=== PATIENT | female | born 1990 | race Caucasian/White ===

== ENCOUNTER 2019-11-23 09:07 | Emergency (ER) | payer OTHER, SELFPAY ==
[2019-11-23 09:08] VITALS: BP 152/95; PULSE 85; RESP 18; TEMP 37; O2SAT 98; BMI 48.4
--- NOTE | 2019-11-23 09:27 | ED.DCSUM_ITS ---
History of Present Illness Chief Complaint: Allergic Reaction Informant: Patient Onset: Today Narrative: Patient states she woke with indigestion and took Pepto-Bismol around 7 AM. About 15 minutes later she started breaking out in hives. She complains of itching and rash on her arms, lumbar trunk, and back. She has not taken anything for the symptoms at this time. She states she felt like her lips were swollen. She had no difficulty breathing or swallowing. She reports taking Pepto-Bismol in the past without any difficulty. She did not take anything different this morning. Past Medical History - Allergies and Home Meds Allergies/Adverse Reactions: Allergies bismuth subsalicylate [From Pepto-Bismol] Allergy (Verified 11/23/19 09:24) Rash Primary Care Physician: Rashid Dukes MD [Primary Care Provider] - Past Medical History: None Smoking Status: Never smoker Review of Systems General: Denies: Chills, Fever Eyes: Denies: Visual changes - bilaterally ENT: Denies: Bilateral ear pain Cardiovascular: Denies: Chest pain Respiratory: Denies: Dyspnea Gastrointestinal: Denies: Nausea, Vomiting, Diarrhea Musculoskeletal: Reports: Swelling. Denies: Extremity Pain Skin: Reports: Rash Neurological: Denies: Headache Allergy: Reports: Uticaria Physical Exam Vital Signs/Narrative: Vital Signs Temp Pulse Resp BP Pulse Ox 11/23/19 09:08 98.6 F 85 18 152/95 H 98 Inital Vital Signs reviewed: Yes General: Well nourished, Well developed Head: Normocephalic ENT: Moist mucous membranes, - - No tongue edema noted. Posterior pharynx examination is normal. Patient speaks with a strong voice and is tolerating secretions well. Neck: Supple Cardiovascular: Regular rate, Regular rhythm Respiratory: No distress, CTA bilaterally Abdomen: Soft, Nontender Skin: - - Patient presents with erythema, mild swelling, hives on her bilateral forearms, upper chest and back. Neurological: Alert, Oriented x3 Psychological: Normal affect Diagnostic/Tx/Re-eval - Medical Decision Making Patient was given Solu-Medrol, Benadryl, and Pepcid. She was observed for 2 hours after medications were given. Erythema has significantly improved. She will be discharged with a prescription for prednisone. ED Disposition - Plan for ED Patient: Disposition: Home or Assisted Living Diagnosis: Allergic reaction Instructions: ALLERGIC REACTION, Other (General) Prescriptions: Prednisone [Deltasone] 60 mg PO DAILY #15 tab Transmission Status: Pending to [id number] Referrals: Rashid Dukes MD [Primary Care Provider] - As Needed
[2019-11-23] MEDS: MethylPREDNISolone 125 MG/2 ML Vial IV (09:33)
[2019-11-23] MEDS: DiphenhydrAMINE 50 MG/ML Syringe 25 MG IV (09:33)
[2019-11-23] MEDS: Famotidine 200 MG/20 ML MDV 20 MG in 0.9% Normal Saline (Pres. free 8 ML 300 MG IV (09:47)
[2019-11-23 11:50] VITALS: PULSE 90; RESP 16; O2SAT 97
[2019-11-23 12:14] VITALS: PULSE 90; RESP 16; O2SAT 97
== END 2019-11-23 12:15 | disposition home or self-care (01) ==
PROVIDERS: Emergency Provider Emergency Medicine; Family Provider Family Medicine; PCP Family Medicine
DX: L50.0 Allergic urticaria (principal); T47.6X5A Adverse effect of antidiarrheal drugs, initial encounter
CPT/HCPCS: 96374; 96375; 99284; A4216; J3490

== ENCOUNTER 2023-12-11 15:16 | Emergency (ER) | payer SELFPAY ==
[2023-12-11 15:18] VITALS: BP 147/77; PULSE 71; RESP 22; TEMP 35.9; O2SAT 98; BMI 40.4
--- NOTE | 2023-12-11 15:43 | EX.ED.VIS.PS ---
HPI HPI - Psych History of Present Illness Chief Complaint: Suicidal Narrative Narrative: 33-year-old female who denies significant past medical history except for depression, not on medication, presents with thoughts and threats of suicide. She states that she used to work at [employer] and was fired today. She had a breakdown as she calls it, and told her operations manager station that she wanted to hurt herself. She states that she currently lives with roommates and that she lost her job, does not want to face debt. She does not want to be homeless. While she states she is never been sent to a psychiatric facility and never attempted suicide, she has remote behavior of cutting herself with a razor blade when she was younger, and she would hit her head against the wall with attempts to hurt herself. She states her operations manager station called the police, and the police brought her to the emergency department for evaluation. PFSH PFSH Home Medications prednisone 20 mg tablet 60 mg (3 x 20 mg) PO DAILY #15 tabs 11/23/19 [Rx Last Taken Unknown] Allergy/AdvReac Type Severity Reaction Status Date / Time bismuth subsalicylate Allergy Rash Verified 11/23/19 09:24 [From Pepto-Bismol] Social History Smoking Status: Never smoker ROS ROS ED ROS Narrative Constitutional: No fever, no chills. HEENT: No sore throat. No neck pain. No loss of vision. No rhinorrhea. Cardiovascular: No chest pain. No palpitations. No pedal edema. Respiratory: No cough, no shortness of breath. Abdominal: No abdominal pain. No nausea. No vomiting. Genitourinary: No dysuria. No hematuria. Musculoskeletal: No myalgias. No arthralgias. Neurologic: No headaches. No dizziness. No lightheadedness. Skin: No rash. No change in color. Psychiatric: Positive suicidal ideation with threats of hurting herself. Positive depression. EXAM Physical Exam Narrative Exam Narrative: Afebrile. Vital signs noted. HEENT: Normocephalic. Atraumatic. PERRL, EOMI. Neck soft and supple. No point tenderness or step off. Cardiovascular: Regular rate and rhythm. No murmurs, rubs, or gallops appreciated. Respiratory: No tachypnea. Lungs clear to auscultation bilaterally. Gastrointestinal: Abdomen soft, nontender, with normoactive bowel sounds. No rebound or guarding. Neurological: Awake. Alert. Nonfocal, nonlateralizing. Skin: No rash. Normal color. No pallor. Musculoskeletal: No pedal edema. Full range of motion extremities. Psychiatric: Tearful on examination. Depressed affect. Const Vital Signs: 12/11/23 15:18 Temperature 96.7 F L Temperature Source Temporal Pulse Rate 71 Respiratory Rate 22 H Blood Pressure 147/77 H Blood Pressure Mean 100 Pulse Ox 98 Oxygen Delivery Method Room Air MDM MDM MDM Narrative Medical decision making narrative: Concern is for actual suicidal ideation, she does not currently take medications for depression. It may be situational as she was recently let go from her job. Medical clearance labs will be obtained and reviewed. I reviewed her laboratory work, and she has normal white count of 6.7, ALT of 12, AST of 12 also. Potassium slightly low at 3.3 which was replaced orally with 40 mill equivalents. Glucose is appropriately elevated at 70. This will be rechecked prior to any disposition. She will be able to eat something by mouth. I reviewed her ethanol level which is negative and urine for drugs of abuse is positive for cannabinoids and cocaine. However, I do feel that she is medically cleared for crisis evaluation. In discussion with the crisis counselor, it was not thought that she required a psychiatric facility. She is able to contract for safety without ambivalence. She never really had a plan for suicide and her idea of self-harm is hitting her head against the wall. She will follow-up with the counseling center in the next few days as well. She will return with thoughts of self-harm or suicide that are increasing, new or worsening symptoms. Disposition is discharged in stable condition. History & Record Review Discussion w/independent historian: Patient Additional record(s) reviewed:: Prior ED visit Lab Data Attestation: I reviewed the patient's lab results. Labs: Laboratory Results - last 24 hr 12/11/23 12/11/23 15:38 15:53 WBC 6.7 RBC 4.30 Hgb 13.2 Hct 39.6 MCV 92.1 MCH 30.7 MCHC 33.3 RDW Std Deviation 44.1 H RDW Coeff of Erika 13.1 Plt Count 243 MPV 9.5 Immature Gran % (Auto) 0.300 Neut % (Auto) 62.2 Lymph % (Auto) 27.3 [place] % (Auto) 5.6 Eos % (Auto) 4.2 Baso % (Auto) 0.4 Absolute Neuts (auto) 4.2 Absolute Lymphs (auto) 1.84 Nucleated RBC % 0 Sodium 138 Potassium 3.3 L Chloride 104 Carbon Dioxide 30.0 Anion Gap 4 L BUN 16 Creatinine 0.70 Estim Creat Clear Calc 148.82 Est GFR (MDRD) Af Amer 125 Est GFR (MDRD) Non-Af 103 BUN/Creatinine Ratio 22.8 H Glucose 70 L Calcium 8.5 Total Bilirubin 0.20 AST 12 L ALT 12 L Alkaline Phosphatase 73 Total Protein 7.3 Albumin 3.0 L Globulin 4.3 H Albumin/Globulin Ratio 0.7 L Serum , Qual NEGATIVE Urine Opiates Screen NEGATIVE Urine Methadone Screen NEGATIVE Ur Barbiturates Screen NEGATIVE Ur Phencyclidine Scrn NEGATIVE Ur Amphetamines Screen NEGATIVE MDMA (Ecstasy) Screen NEGATIVE U Benzodiazepines Scrn NEGATIVE Urine Cocaine Screen POSITIVE H U Cannabinoids Screen POSITIVE H Ur Drug Screen Comment Ethyl Alcohol < 3.0 Discharge Plan Triage Chief Complaint: Suicidal ED Provider: Isiah Toledo Dx/Rx/DC Orders Clinical Impression: Thoughts of self-harm, Stress reaction, Depression Instructions: Your Mental Health Safety Plan, ED Anxiety Reaction, ED Depression Prescriptions: No Action prednisone 20 MG tablet 60 mg PO DAILY Qty: 15 0RF Rx Instructions: With food Primary Care Provider: Rashid Dukes Referrals: Counseling,Center [Group of Physicians] - 2 Days Rashid Dukes MD [Primary Care Provider] - 1-2 Days if not improving Activity Restrictions/Additional Instructions: Return with increasing thoughts of hurting yourself, suicide, new or worsening symptoms. Disposition Disposition: Home, Self Care
[2023-12-11 16:02] LABS: Absolute Lymphocyte Count 1.84 X10^3/uL (0.83-4.51); Absolute Neutrophil Count 4.2 X10^3/uL (2.0-7.7); Basophil# 0.03 X10^3/uL; Basophil% 0.4 % (0-1); Eosinophil# 0.28 X10^3/uL; Eosinophils% 4.2 % (0-5); Hematocrit 39.6 % (37-47); Hemoglobin 13.2 g/dL (12.0-15.0); Lymphocyte # 1.84 X10^3/ul (0.83-4.51); Lymphocyte % 27.3 % (19-41); Mean Corp Hgb Conc 33.3 g/dL (32-36); Mean Corpuscular Hgb 30.7 pg (27.0-32.0); Mean Corpuscular Volume 92.1 fL (81-99); Mean Platelet Vol. 9.5 fl (6.2-12.0); Monocyte# 0.38 X10^3/uL; Monocyte% 5.6 % (0-10); NRBC Flagged by Analyzer 0 % (0-5); Neutrophil # 4.19 X10^3/uL (2.7-7.7); Neutrophil % 62.2 % (47-70); Platelet Count 243 K/mm3 (150-450); RBC Distribution Width CV 13.1 % (11.6-14.6); RBC Distribution Width SD 44.1 fl (35.1-43.9); White Blood Count 6.7 K/mm3 (4.4-11.0)
--- OUTSIDE RECORDS SUMMARY | 2023-12-11 16:13 | XMS RPT_ITS | CCD ---
Author Name Unknown Address [address] [place] [address] Organization [facility] Results Test Name Value Interpretation Reference Range Facil ity Summary Purpose Family History No Family History Records Found Advance Directives No Advanced Directives Records Found Additional Source Comments INFORMATION SOURCE (unrecogn ized section and content) FOR RECORDS PERTAINING TO PATIENTS WHO ARE OR HAVE BEEN ENROLLED IN A CHEMICAL DEPENDENCY/SUBSTANCEABUSE PROGRAM, SOME INFORMATION MAY BE OMITTED. This clinical summary was aggregated from multiple sources. Caution should be exercised in using it in the provision of clinical care. This summary normalizes information from multiple sources, and as a consequence, information in this document may materially change the coding, format and clinical context of patient data. In addition, data may be omitted in some cases. CLINICAL DECISIONS SHOULD BE BASED ON THE PRIMARY CLINICAL RECORDS. [employer] provides no warranty or guarantee of the accuracy or completeness of information in this document.
[2023-12-11 16:24] LABS: Alcohol, Blood (Medical)-Serum < 3.0 mg/dL
[2023-12-11 16:28] LABS: ALB/GLOB Ratio 0.7 RATIO (0.9-2.4); AST(SGOT) 12 U/L (15-37); Alanine Aminotransfer ALT/SGPT 12 U/L (13-56); Alkaline Phosphatase 73 U/L (45-117); Anion Gap 4 (5-15); BUN 16 mg/dL (7-18); BUN/Creat Ratio 22.8 RATIO (10-20); Calcium,Total 8.5 mg/dL (8.5-10.1); Chloride 104 mmol/L (98-107); EST Glomerular Filtration Rate 103 mL/min (>60); Est Glom Filt Rate - Afr Amer 125 mL/min (>60); Estimated Creatinine Clearance 148.82 ml/min; Globulin 4.3 g/dL (2.2-4.2); Glucose 70 mg/dL (74-106); Potassium 3.3 mmol/L (3.5-5.1); Protein, Total 7.3 g/dL (6.4-8.2); Sodium Level 138 mmol/L (136-145)
[2023-12-11 16:32] LABS: Amphetamine Urine VISTA NEGATIVE (<1000 ng/mL); Barbiturate Urine VISTA NEGATIVE (< 200 ng/mL); Benzodiazepine Urine VISTA NEGATIVE (< 200 ng/mL); Cocaine Urine VISTA POSITIVE (< 300 ng/mL); Ecstacy Urine VISTA NEGATIVE (< 500 ng/mL); Methadone Urine VISTA NEGATIVE (< 300 ng/mL); PCP Urine VISTA NEGATIVE (< 25 ng/mL); THC Urine VISTA POSITIVE (< 50 ng/mL); Vista UDS pH Range 5
[2023-12-11 16:46] LABS: Internal QC Validated? YES +Cl - CLEAR BKGD; Pregnancy, Serum, hCG Quali. NEGATIVE Negative
--- NOTE | 2023-12-11 17:28 | ED.RN ---
CRISIS CALLED TO EVALUATE PT AND FAXED MEDICAL CLEARANCE.
[2023-12-11] MEDS: Potassium Chloride Oral Tablet 20 MEQ 40 MEQ PO (17:42)
[2023-12-11 19:40] VITALS: BP 133/70; PULSE 80; RESP 15; O2SAT 99
== END 2023-12-11 19:44 | disposition home or self-care (01) ==
PROVIDERS: Emergency Provider Emergency Medicine; PCP Family Medicine; Visit Provider Emergency Medicine
DX: R45.851 Suicidal ideations (principal); F43.9 Reaction to severe stress, unspecified; F32.A Depression, unspecified; Z56.2 Threat of job loss
CPT/HCPCS: 80053; 80307; 80320; 84703; 85025; 99282; G0480